=== PATIENT | female | born 1970 | race African-American/Black ===

== ENCOUNTER 2017-09-07 11:42 | Inpatient (IN) | payer OTHER ==
[2017-09-07 15:41] VITALS: BMI 21.2
--- NOTE | 2017-09-07 17:47 | HP ---
CIWA Score - CIWA Score Nausea/Vomitin (vomited x 1) Muscle Tremors: 2 Anxiety: 2 Agitation: 0-Normal Activity Paroxysmal Sweats: 2 Orientation: 2-Disoriented Date<2 days (reports today's date as 09/05/17) Tacttile Disturbances: 2-Mild Itch/Numbness/Burn (fingers and feets bilateral) Auditory Disturbances: 1-Very Mild Visual Disturbances: 1-Very Mild Sensitivity Headache: 1-Very Mild CIWA-Ar Total Score: [address] [facility] Chief Complaint: alcohol withdrawal symptoms Allergies/Adverse Reactions: Allergies Allergy/AdvReac Type Severity Reaction Status Date / Time No Known Allergies Allergy Verified 09/07/17 17:26 History of Present Illness: 47 yo female nicotine, alcohol, PCP, cocaine dependence is her seeking detox. PMHX: asthma, HIV+ reports compliance with medications, depression, bipolar and schizophrenia. Denies suicidal / homicidal ideation, denies auditory / visual hallucinations, reports in the past has auditory hallucinations. Last detox [facility] 2015. Reports hx of seizure related to substance use, last seizure three days ago. Denies hx of OD. Reports June her daughter from cancer. - Ebola screening Have you traveled outside of the country in the last 21 days: No Have you had contact with anyone from an Ebola affected area: No Have you been sick,other than usual withdrawal symptoms: No Do you have a fever: No - Review of Systems Constitutional: Chills, Loss of Appetite, Changes in sleep, Weakness, Unintentional Wgt. Loss (reports weight loss of about 20 lbs over the past couple of months.) EENT: reports: No Symptoms Reported Respiratory: reports: Cough (x 2 weeks) Cardiac: reports: No Symptoms Reported GI: reports: Diarrhea, Nausea, Poor Appetite, Poor Fluid Intake, Vomiting : reports: No Symptoms Reported Musculoskeletal: reports: Joint Pain Integumentary: reports: No Symptoms Reported Neuro: reports: Headache, Numbness (hands and feet), Tingling Endocrine: reports: Excessive Sweating Hematology: reports: Anemia Psychiatric: reports: Orientated x3, Agitated, Depressed Other Systems: Reviewed and Negative Patient History - Patient Medical History Hx Anemia: Yes Hx Asthma: Yes Hx Chronic Obstructive Pulmonary Disease (COPD): No Hx Cancer: No Hx Cardiac Disorders: No Hx Congestive Heart Failure: No Hx Hypertension: No Hx Hypercholesterolemia: No Hx Pacemaker: No HX Cerebrovascular Accident: Yes (1995) Hx Seizures: Yes (last seizure three days ago ) Hx Dementia: No Hx Diabetes: No Hx Gastrointestinal Disorders: No Hx Liver Disease: No Hx Genitourinary Disorders: No Hx Sexually Transmitted Disorders: No Hx Renal Disease (ESRD): No Hx Thyroid Disease: No Hx Human Immunodeficiency Virus (HIV): Yes Hx Hepatitis C: No Hx Depression: Yes Hx Suicide Attempt: No Hx Bipolar Disorder: Yes Hx Schizophrenia: Yes - Patient Surgical History Past Surgical History: No Hx Neurologic Surgery: No Hx Cataract Extraction: No Hx Cardiac Surgery: No Hx Lung Surgery: No Hx Breast Surgery: No Hx Breast Biopsy: No Hx Abdominal Surgery: No Hx Appendectomy: No Hx Cholecystectomy: No Hx Genitourinary Surgery: No Hx Section: Yes (2006) Hx Orthopedic Surgery: No Hx Hysterectomy: No Anesthesia Reaction: No - PPD History Previous Implant?: Yes Documented Results: Negative w/proof Date: 11/03/14 Results: 0 mm PPD to be Administered?: Yes - Reproductive History Patient is a Female of Child Bearing Age (11 -55 yrs old): Yes Last Menstrual Period: 09/19/15 - Smoking Cessation Smoking history: Current every day smoker Have you smoked in the past 12 months: Yes Aproximately how many cigarettes per day: 20 Hx Chewing Tobacco Use: No Initiated information on smoking cessation: Yes 'Breaking Loose' booklet given: 09/07/17 - Substance & Tx. History Hx Alcohol Use: Yes Hx Substance Use: Yes Substance Use Type: Alcohol, Cocaine Hx Substance Use Treatment: Yes ([facility] 2015) - Substances Abused Alcohol Route: Oral Frequency: Daily Amount used: 5 PINT Age of first use: 9 Date of Last Use: 09/07/17 Cocaine Route: Smoking Frequency: Daily Amount used: $300/2 WEEK Age of first use: 15 Date of Last Use: 09/07/17 PCP Route: Smoking Frequency: Daily Amount used: $10 Age of first use: 15 Date of Last Use: 09/07/17 Family Disease History - Family Disease History Family Disease History: Heart Disease: Grandparent (pt is nodding off , hx unrelaible ), CA: Grandparent, Other: Grandparent Admission Physical Exam BHS - Vital Signs Vital Signs: Vital Signs - 24 hr 09/07/17 15:39 Temperature 98.4 F Pulse Rate 93 H Respiratory 18 Rate Blood Pressure 138/91 - Physical General Appearance: Yes: Disheveled, Thin, Irritable, Anxious HEENTM: Yes: EOMI, Hearing grossly Normal, Normal ENT Inspection, Normocephalic , Normal Voice, NAOMI, Tm's normal, Other (chelithis) Respiratory: Yes: Chest Non-Tender, Lungs Clear, Normal Breath Sounds, No Respiratory Distress, No Accessory Muscle Use Neck: Yes: No masses,lesions,Nodules, Trachea in good position Breast: Yes: Breast Exam Deferred Cardiology: Yes: Regular Rhythm, Regular Rate Abdominal: Yes: Normal Bowel Sounds, Non Tender, Soft, Protuberent Genitourinary: Yes: Within Normal Limits Back: Yes: Normal Inspection Musculoskeletal: Yes: full range of Motion, Gait Steady, Pelvis Stable Neurological: Yes: script artist II-XII NML intact, Motor Strength 5/5, Depressed Affect, Other (anxious) Integumentary: Yes: Normal Color, Dry, Warm Lymphatic: Yes: Within Normal Limits - Diagnostic (1) Weight loss Current Visit: Yes Status: Acute (2) Dehydration Current Visit: Yes Status: Acute (3) Dry skin Current Visit: Yes Status: Acute (4) Alcohol dependence with uncomplicated withdrawal Current Visit: Yes Status: Acute (5) Asthma Current Visit: Yes Status: Chronic Qualifiers: Asthma severity: mild intermittent Asthma complication type: with status asthmaticus Qualified Code(s): J45.22 - Mild intermittent asthma with status asthmaticus (6) Bipolar 1 disorder, depressed Current Visit: No Status: Chronic (7) Cocaine dependence Current Visit: Yes Status: Chronic Qualifiers: Substance use status: uncomplicated Qualified Code(s): F14.20 - Cocaine dependence, uncomplicated (8) HIV disease Current Visit: Yes Status: Chronic Comment: Reports compliance with medications. (9) PCP dependence Current Visit: Yes Status: Acute (10) Tinea pedis Current Visit: Yes Status: Acute Qualifiers: Laterality: bilateral Qualified Code(s): B35.3 - Tinea pedis Cleared for Admission [facility] - Detox or Rehab [facility] Level of Care: Medically Managed Detox Regimen/Protocol: Valium S Breath Alcohol Content Breath Alcohol Content: 0.009 Urine Drug Screen - Results Drug Screen Negative: No Urine Drug Screen Results: AMRIK-Cocaine
[2017-09-07] MEDS ORDERED: MAG HYDROX/AL HYDROX/SIMETH 30 ML UNIT-DOSE CUP PO PRN (17:51)
[2017-09-07] MEDS ORDERED: P-EPHED 60MG/TRIPROLIDI 2.5MG TABLET PO PRN (17:51)
[2017-09-07] MEDS ORDERED: MENTHOL/PHENOL 1 EACH UD MM PRN (17:51)
[2017-09-07] MEDS ORDERED: diazePAM 5 MG TABLET PO PRN (17:51)
[2017-09-07] MEDS ORDERED: guaiFENesin/D-METHORPHAN HB 10 ML UNIT-DOSE CUPS PO PRN (17:51)
[2017-09-07] MEDS ORDERED: MAGNESIUM HYDROX 2400MG/30ML ORAL SUSPENSION 30 ML CUP PO PRN (17:51)
[2017-09-07] MEDS ORDERED: LOPERAMIDE HCL 2 MG CAPSULE PO PRN (17:51)
[2017-09-07] MEDS ORDERED: hydrOXYzine PAMOATE 50 MG CAPSULE (FP) PO PRN (17:51)
[2017-09-07] MEDS ORDERED: IBUPROFEN 400 MG TABLET (FP) PO PRN (17:51)
[2017-09-07] MEDS ORDERED: NICOTINE POLACRILEX 2 MG GUM BC PRN (17:51)
[2017-09-07] MEDS ORDERED: ACETAMINOPHEN 325 MG TABLET (FP) PO PRN (17:51)
[2017-09-07] MEDS ORDERED: MAGNESIUM CITRATE 300 ML BOTTLE PO PRN (17:51)
[2017-09-07] MEDS ORDERED: ALBUTEROL SO4 18 GM HFA INHALER IH PRN (17:53)
[2017-09-07] MEDS ORDERED: COLLOIDAL OATMEAL 1 BAR EACH TP PRN (18:13)
[2017-09-07] MEDS ORDERED: METHADONE HCL 10 MG TABLET (FOR DETOX USE ONLY) ONE (18:32)
[2017-09-07] MEDS ORDERED: ALBUTEROL SO4 2.5/IPRATROPIUM 0.5 INH SOL 3 ML VIAL.NEB. NEB PRN (18:56)
[2017-09-07] MEDS ORDERED: diazePAM 5 MG TABLET PO ONE (19:00)
[2017-09-07] MEDS ORDERED: diphenhydrAMINE HCL 25 MG CAPSULE (FP) PO ONE (21:28)
[2017-09-07] MEDS ORDERED: MELATONIN 5 MG TABLETS PO PRN (22:00)
[2017-09-07 22:14] LABS: URINE APPEARANCE SLCLOUDY; URINE BILIRUBIN NEGATIVE (<2.0 mg/dL); URINE BLOOD NEGATIVE (NEGATIVE); URINE COLOR YELLOW; URINE GLUCOSE (UA) NEGATIVE (NEGATIVE); URINE KETONE NEGATIVE (NEGATIVE); URINE LEUK ESTERASE NEGATIVE (NEGATIVE); URINE NITRITE NEGATIVE (NEGATIVE); URINE PROTEIN NEGATIVE (NEGATIVE)
[2017-09-07] MEDS: CLOTRIMAZOLE 1% CREAM 15 GM TUBE TP SCH (23:49)
[2017-09-07] MEDS: diphenhydrAMINE HCL 50 MG CAPSULE PO SCH (23:49)
[2017-09-07] MEDS: THIAMINE HCL 100 MG TABLET (FP) PO SCH (23:50)
[2017-09-07] MEDS: diazePAM 5 MG TABLET PO SCH (23:50)
[2017-09-08] MEDS: diazePAM 5 MG TABLET PO SCH ×3 (06:27→22:40)
--- NOTE | 2017-09-08 07:40 | CONSULT ---
[facility] Psychiatric Consult - Data Date of interview: 09/08/17 Admission source: [facility] Identifying data: This is 47 years old female, single, homeless, on PA, unemployed, with history of Bipolar Disorder, hiustory of nicotine, alcohol, PCP, cocaine dependence is here seeking detox. Patient reports psychiatric hospitalization history Substance Abuse History: - Smoking Cessation. Smoking history: Current every day smoker. Have you smoked in the past 12 months: Yes. Aproximately how many cigarettes per day: 20. Hx Chewing Tobacco Use: No. Initiated information on smoking cessation: Yes. 'Breaking Loose' booklet given: 09/07/17. - Substance & Tx. History. Hx Alcohol Use: Yes. Hx Substance Use: Yes. Substance Use Type : Alcohol, Cocaine. Hx Substance Use Treatment: Yes ([facility] 2016). - Substances Abused. Alcohol. Route: Oral. Frequency: Daily. Amount used: 5 PINT. Age of first use: 9. Date of Last Use: 09/07/17. Cocaine. Route: Smoking. Frequency: Daily. Amount used: $300/2 WEEK. Age of first use: 15. Date of Last Use: 09/07/17. PCP. Route: Smoking. Frequency: Daily. Amount used: $ 10. Age of first use: 15. Date of Last Use: 09/07/17 Medical History: Patioent reports history of GERD, hiv+, history of seizure related to substance use, last seizure three days ago. Psychiatric History: Patient reports Bipolar Disorder history, reports recent psychiatic admission on 2018 for safety at [facility], reports in a Family (Daughter, from Cancer recently), reports taking prior to admission : Seroquel 100mg po qhs. Benadryl 50mg po bid. Denies suicidal history, minimiozing past psychiatric history Physical/Sexual Abuse/Trauma History: Unknown, unclear Additional Comment: Seroquel 100mg po qhs. Benadryl 50mg po bid Mental Status Exam - Mental Status Exam Alert and Oriented to: Person Cognitive Function: Fair Patient Appearance: Unkempt Mood: Sad Affect: Flat Patient Behavior: Sedated Speech Pattern: Delayed Voice Loudness: Moderately Soft/Quiet Thought Process: Circumstantial Thought Disorder: Being Controlled Hallucinations: Denies Suicidal Ideation: Denies Homicidal Ideation: Denies Insight/Judgement: Fair Sleep: Difficulty falling asleep Appetite: Weight loss Muscle strength/Tone: Mild Hypotonicity Gait/Station: Shuffling Additional Comments: Seroquel 100mg po qhs. Benadryl 50mg po bid Psychiatric Findings - Problem List ([place] 1, 2,3) (1) Alcohol dependence with uncomplicated withdrawal Current Visit: Yes Status: Acute (2) PCP dependence Current Visit: Yes Status: Acute (3) Weight loss Current Visit: Yes Status: Acute (4) Cocaine dependence Current Visit: Yes Status: Chronic Qualifiers: Substance use status: uncomplicated Qualified Code(s): F14.20 - Cocaine dependence, uncomplicated (5) Bipolar 1 disorder, depressed Current Visit: No Status: Chronic (6) Opiate dependence Current Visit: No Status: Chronic Qualifiers: Substance use status: uncomplicated Qualified Code(s): F11.20 - Opioid dependence, uncomplicated (7) Drug-induced mood disorder Current Visit: Yes Status: Acute - Initial Treatment Plan Initial Treatment Plan: Seroquel 100mg po qhs. Benadryl 50mg po bid
[2017-09-08] MEDS ORDERED: cloNIDine HCL 0.1 MG TABLET PO PRN (07:47)
[2017-09-08 10:16] LABS: HEMATOCRIT 32.5 % (32.4-45.2); HEMOGLOBIN 10.5 GM/dL (10.7-15.3); MCH 27.1 pg (25.7-33.7); MCHC 32.1 g/dl (32.0-36.0); MEAN CELL VOLUME 84.2 fl (80-96); MEAN PLT VOLUME 9.5 fl (7.5-11.1); PLATELET COUNT 251 K/MM3 (134-434); RBC 3.86 M/mm3 (3.60-5.2); RDW 21.5 % (11.6-15.6); WHITE BLOOD COUNT 5.2 K/mm3 (4.0-10.0)
[2017-09-08] MEDS ORDERED: cloNIDine HCL 0.1 MG TABLET PO ONE (10:29)
--- NOTE | 2017-09-08 10:29 | PN ---
[facility] CIWA - CIWA Score Nausea/Vomitin Muscle Tremors: 2 Anxiety: 2 Agitation: 2 Paroxysmal Sweats: 3 Orientation: 0-Oriented Tacttile Disturbances: 1-Very Mild Itch/Numbness Auditory Disturbances: 0-None Visual Disturbances: 0-None Headache: 1-Very Mild CIWA-Ar Total Score: 13 BHS Progress Note (SOAP) Subjective: nausea, sweats, interrupted wsleep, anxeity, tremors Objective: 09/08/17 10:28 Vital Signs - 24 hr 09/07/17 09/08/17 09/08/17 15:39 00:30 03:30 Temperature 98.4 F Pulse Rate 93 H Respiratory 18 18 18 Rate Blood Pressure 138/91 09/08/17 06:00 Temperature 97.9 F Pulse Rate 86 Respiratory 20 Rate Blood Pressure 148/99 hypertensive, tachycardic 09/08/17 10:28 Laboratory Tests 09/07/17 21:00 Urine Color Yellow Urine Appearance Slcloudy Urine pH 6.0 Ur Specific Miller 1.024 Urine Protein Negative Urine Glucose (UA) Negative Urine Ketones Negative Urine Blood Negative Urine Nitrite Negative Urine Bilirubin Negative Urine Urobilinogen 2.0 H Ur Leukocyte Esterase Negative labs p[ending Assessment: 09/08/17 10:28 withdrawal sx cont detox, control bp and hr
[2017-09-08 10:51] LABS: ALBUMIN 3.4 g/dl (3.4-5.0); ANION GAP 7 (8-16); BLOOD UREA NITROGEN 13 mg/dL (7-18); CALCIUM 8.3 mg/dL (8.5-10.1); CHLORIDE 109 mmol/L (98-107); CO2 25 mmol/L (21-32); GLUCOSE,RANDOM 67 mg/dL (74-106); POTASSIUM 3.6 mmol/L (3.5-5.1); SODIUM 141 mmol/L (136-145)
[2017-09-08 10:56] LABS: ALK PHOS 82 U/L (45-117); BILIRUBIN,TOTAL 0.2 mg/dL (0.2-1.0); CREATININE 0.7 mg/dL (0.55-1.02); SGOT/AST 28 U/L (15-37); SGPT/ALT 22 U/L (12-78)
[2017-09-08] MEDS: CLOTRIMAZOLE 1% CREAM 15 GM TUBE TP SCH ×2 (11:30→22:42)
[2017-09-08] MEDS: PRENATAL VITAMINS W/ FOLIC ACID TABLET (FP) PO SCH (11:30)
[2017-09-08] MEDS: ABACAVIR/DOLUTEGRAVIR/LAMIVUDI (TRIUMEQ) TABLET -NF PO SCH (11:30)
[2017-09-08] MEDS: NICOTINE 21 MG/24 HOURS TOPICAL PATCH TD SCH (11:47)
[2017-09-08] MEDS: diphenhydrAMINE HCL 50 MG CAPSULE PO SCH ×2 (11:47→22:43)
[2017-09-08] MEDS: THIAMINE HCL 100 MG TABLET (FP) PO SCH (22:39)
[2017-09-08] MEDS ORDERED: diphenhydrAMINE HCL 25 MG CAPSULE (FP) PO ONE (22:40)
[2017-09-08] MEDS: QUEtiapine FUMARATE 100 MG TABLET (FP) PO SCH (22:41)
[2017-09-09] MEDS ORDERED: diphenhydrAMINE HCL 25 MG CAPSULE (FP) PO ONE (09:43)
[2017-09-09] MEDS: diazePAM 5 MG TABLET PO SCH ×2 (10:07→22:28)
[2017-09-09] MEDS: ABACAVIR/DOLUTEGRAVIR/LAMIVUDI (TRIUMEQ) TABLET -NF PO SCH (10:07)
[2017-09-09] MEDS: PRENATAL VITAMINS W/ FOLIC ACID TABLET (FP) PO SCH (10:07)
[2017-09-09] MEDS: NICOTINE 21 MG/24 HOURS TOPICAL PATCH TD SCH (10:08)
[2017-09-09] MEDS: diphenhydrAMINE HCL 50 MG CAPSULE PO SCH ×2 (10:08→23:13)
[2017-09-09] MEDS: CLOTRIMAZOLE 1% CREAM 15 GM TUBE TP SCH ×2 (10:08→23:13)
--- NOTE | 2017-09-09 10:27 | PN ---
S CIWA - CIWA Score Nausea/Vomitin Muscle Tremors: 2 Anxiety: 2 Agitation: 2 Paroxysmal Sweats: 2 Orientation: 0-Oriented Tacttile Disturbances: 1-Very Mild Itch/Numbness Auditory Disturbances: 0-None Visual Disturbances: 0-None Headache: 0-None Present CIWA-Ar Total Score: 12 S Progress Note (SOAP) Subjective: interrupted sleep, sweats, diarrhea Objective: 09/09/17 10:25 Vital Signs Temperature 96.6 F L 09/09/17 06:00 Pulse Rate 99 H 09/09/17 06:00 Respiratory Rate 18 09/09/17 06:00 Blood Pressure 122/83 09/09/17 06:00 O2 Sat by Pulse Oximetry (%) Laboratory Tests 09/07/17 09/08/17 09/08/17 21:00 06:00 06:00 WBC 5.2 D RBC 3.86 Hgb 10.5 L D Hct 32.5 MCV 84.2 MCH 27.1 D MCHC 32.1 RDW 21.5 H Plt Count 251 MPV 9.5 Sodium 141 Potassium 3.6 Chloride 109 H Carbon Dioxide 25 Anion Gap 7 L BUN 13 Creatinine 0.7 Creat Clearance w eGFR > 60 Random Glucose 67 L Calcium 8.3 L Total Bilirubin 0.2 D AST 28 ALT 22 Alkaline Phosphatase 82 Total Protein 8.0 Albumin 3.4 Urine Color Yellow Urine Appearance Slcloudy Urine pH 6.0 Ur Specific Welch 1.024 Urine Protein Negative Urine Glucose (UA) Negative Urine Ketones Negative Urine Blood Negative Urine Nitrite Negative Urine Bilirubin Negative Urine Urobilinogen 2.0 H Ur Leukocyte Esterase Negative RPR Titer 09/08/17 06:00 WBC RBC Hgb Hct MCV MCH MCHC RDW Plt Count MPV Sodium Potassium Chloride Carbon Dioxide Anion Gap BUN Creatinine Creat Clearance w eGFR Random Glucose Calcium Total Bilirubin AST ALT Alkaline Phosphatase Total Protein Albumin Urine Color Urine Appearance Urine pH Ur Specific Welch Urine Protein Urine Glucose (UA) Urine Ketones Urine Blood Urine Nitrite Urine Bilirubin Urine Urobilinogen Ur Leukocyte Esterase RPR Titer Nonreactive pt aox3 in nad lying in bed Assessment: 09/09/17 10:26 withdrawal sx's mild anemia Plan: cont. detox increase fluids imodium prn
[2017-09-09] MEDS: QUEtiapine FUMARATE 100 MG TABLET (FP) PO SCH (22:27)
[2017-09-09] MEDS: THIAMINE HCL 100 MG TABLET (FP) PO SCH (22:27)
[2017-09-10] MEDS ORDERED: diphenhydrAMINE HCL 25 MG CAPSULE (FP) PO ONE ×2 (09:30→21:22)
[2017-09-10] MEDS: ABACAVIR/DOLUTEGRAVIR/LAMIVUDI (TRIUMEQ) TABLET -NF PO SCH (10:17)
[2017-09-10] MEDS: PRENATAL VITAMINS W/ FOLIC ACID TABLET (FP) PO SCH (10:26)
[2017-09-10] MEDS: diazePAM 5 MG TABLET PO SCH ×2 (10:26→23:23)
[2017-09-10] MEDS: CLOTRIMAZOLE 1% CREAM 15 GM TUBE TP SCH ×2 (10:27→23:23)
[2017-09-10] MEDS: diphenhydrAMINE HCL 50 MG CAPSULE PO SCH ×2 (10:27→23:23)
[2017-09-10] MEDS: NICOTINE 21 MG/24 HOURS TOPICAL PATCH TD SCH (10:28)
--- NOTE | 2017-09-10 15:17 | PN ---
S Progress Note (SOAP) Subjective: ALERT,IRRITABLE,ANXIOUS,INTERRUPTED SLEEP Objective: 09/10/17 15:16 Vital Signs Temperature 98.1 F 09/10/17 11:23 Pulse Rate 112 H 09/10/17 11:23 Respiratory Rate 18 09/10/17 11:23 Blood Pressure 131/75 09/10/17 11:23 O2 Sat by Pulse Oximetry (%) Assessment: 09/10/17 15:16 WITHDRAWAL SYMPTOM Plan: CONTINUE DETOX,DISCHARGE IN AM
--- NOTE | 2017-09-10 18:38 | EKG ---
Test Reason : Blood Pressure : / mmHG Vent. Rate : 093 BPM Atrial Rate : 093 BPM P-R Int : 146 ms QRS Dur : 090 ms QT Int : 394 ms P-R-T Axes : 062 063 067 degrees QTc Int : 489 ms NORMAL SINUS RHYTHM MODERATE VOLTAGE CRITERIA FOR LVH, MAY BE NORMAL VARIANT PROLONGED QT ABNORMAL ECG NO PREVIOUS ECGS AVAILABLE Confirmed by MD TAI, MILTON ([id number]) on 09/10/2017 6:37:26 PM Referred By: Confirmed By:MILTON LUJAN MD
[2017-09-10 22:24] VITALS: BP 139/78; PULSE 98; TEMP 97.5
[2017-09-10] MEDS: QUEtiapine FUMARATE 100 MG TABLET (FP) PO SCH (23:23)
[2017-09-10] MEDS: THIAMINE HCL 100 MG TABLET (FP) PO SCH (23:23)
--- NOTE | 2017-09-11 09:00 | DS ---
[facility] Detox Discharge Summary Admission Date: 09/07/17 Discharge Date: 09/11/17 - History Present History: Alcohol Dependence - Physical Exam Results Vital Signs: Vital Signs Temperature 97.5 F L 09/10/17 22:24 Pulse Rate 98 H 09/10/17 22:24 Respiratory Rate 18 09/11/17 03:30 Blood Pressure 139/78 09/10/17 22:24 O2 Sat by Pulse Oximetry (%) Pertinent Admission Physical Exam Findings: 47 years old female admitted for alcohol detox patient completed detox regimen tolerated well denies alcohol withdrawal sx denies pain no shortness of breath alert oriented x 3 no acute distress cardiac s1s2 pulmonary clear bilaterally abdomen soft none tenderness patient accepted aftercare [facility] rehabilitation - Treatment Hospital Course: Detox Protocol Followed, Detoxed Safely, Responded well, Discharged Condition Good, Rehab Referral Accepted Patient has Accepted a Rehab Referral to: [facility] - Medication Discharge Medications: Ambulatory Orders Abacavir/Dolutegravir/Lamivudi [Triumeq Tablet] 1 each PO DAILY 09/24/15 Quetiapine Fumarate [Seroquel -] 100 mg PO HS 09/24/15 Diphenhydramine [Benadryl Capsule -] 50 mg PO BID #60 capsule 09/08/17 Quetiapine Fumarate [Seroquel -] 100 mg PO HS #30 tablet 09/08/17 Albuterol Sulfate Inhaler - [Ventolin HFA Inhaler -] 2 inh PO Q4H PRN #1 inhaler 09/11/17 - Diagnosis (1) Alcohol dependence with uncomplicated withdrawal Current Visit: Yes Status: Acute (2) Asthma Current Visit: Yes Status: Chronic Qualifiers: Asthma severity: mild Asthma persistence: intermittent Asthma complication type: with status asthmaticus Qualified Code(s): J45.22 - Mild intermittent asthma with status asthmaticus - AMA Did Patient Leave Against Medical Advice: No
[2017-09-11] MEDS ORDERED: diazePAM 5 MG TABLET PO SCH (10:00)
== END 2017-09-11 09:31 | disposition home or self-care (01) | DRG 773 ==
LOC: YASAS 11:42 → Y6N 18:06
PROVIDERS: ADMIT Internal Medicine; ATTEND Internal Medicine
PROC: HZ2ZZZZ Detoxification Services for Substance Abuse Treatment (ICD-10-PCS; principal; 2017-09-07)
DX: F11.20 Opioid dependence, uncomplicated (principal); F10.230 Alcohol dependence with withdrawal, uncomplicated; F14.20 Cocaine dependence, uncomplicated; F16.20 Hallucinogen dependence, uncomplicated; F19.24 Other psychoactive substance dependence with psychoactive substance-induced mood disorder; F31.89 Other bipolar disorder; F20.9 Schizophrenia, unspecified; J45.22 Mild intermittent asthma with status asthmaticus; B35.3 Tinea pedis; L85.3 Xerosis cutis; R63.4 Abnormal weight loss; Z68.21 Body mass index [BMI] 21.0-21.9, adult; Z86.73 Personal history of transient ischemic attack (TIA), and cerebral infarction without residual deficits
CPT/HCPCS: 36415; 71046-TC-FY; 80053; 81003; 85027; 86593; 93005; 93010; J0735

== ENCOUNTER 2018-07-25 09:19 | Inpatient (IN) | payer OTHER ==
[2018-07-25 11:04] VITALS: BMI 23.3
--- NOTE | 2018-07-25 12:06 | HP ---
CIWA Score Nausea/Vomitin-No Nausea/No Vomiting Muscle Tremors: None Anxiety: 4-Mod. Anxious/Guarded Agitation: 4-Moderately Restless Orientation: 0-Oriented Tacttile Disturbances: 0-None Auditory Disturbances: 0-None Visual Disturbances: 0-None Headache: 0-None Present - Admission Criteria OASAS Guidelines: Admission for Medically Managed Detox: Requires at least one of the followin. CIWA greater than 12 2. Seizures within the past 24 hours 3. Delirium tremens within the past 24 hours 4. Hallucinations within the past 24 hours 5. Acute intervention needed for co occurring medical disorder 6. Acute intervention needed for co occurring psychiatric disorder 7. Severe withdrawal that cannot be handled at a lower level of care (continued vomiting, continued diarrhea, abnormal vital signs) requiring intravenous medication and/or fluids 8. Admission ROS [facility] Allergies/Adverse Reactions: Allergies Allergy/AdvReac Type Severity Reaction Status Date / Time No Known Allergies Allergy Verified 07/25/18 10:35 History of Present Illness: patient here requesting rehab from cocaine use , reports 200-300 $/day since age 15 , denies IVDU, this is the patient's first rehab episode , denies outpt program . Reports had " slight stroke " 2 weeks ago, went to [facility] ,states had head CT , denies appointment for followup.states was given pain meds no d/ c paperwork available , reports right hand weakness since then . tobacco : 1 ppd since age 13 denies other illicits or etoh xanax : every other day since last summer , no rx , reports anxiety and tremors if not taking meds denies seizures , latest use yesterday . PMHX : HIV ( dx 1992 , rf = [facility] ) no regular medical care has appt 08/14/[address] admits non- compliance to meds and no recent rx . , asthma ( dx childhood hospitalized , [place] , no inhaler brought in , latest used 3 d ago ) PSHx : C-sx x 1 , LMP 1 mo ago upt neg Psych ; bipolar d/o , denies SI / HI on meds Seroquel , latest taken yesterday , psych at [facility] : homeless , unemployed Exam Limitations: Clinical Condition - Ebola screening Have you traveled outside of the country in the last 21 days: No Have you had contact with anyone from an Ebola affected area: No Have you been sick,other than usual withdrawal symptoms: No Do you have a fever: No - Review of Systems Constitutional: See HPI EENT: reports: Other (denies vision problems , denies dysphagia) Respiratory: reports: See HPI Cardiac: reports: No Symptoms Reported GI: reports: No Symptoms Reported : reports: No Symptoms Reported Musculoskeletal: reports: Muscle Weakness (right hand and wrist), Other Integumentary: reports: Rash (perioral) Neuro: reports: Pre-Existing Deficit, Weakness Endocrine: reports: No Symptoms Reported Psychiatric: reports: Orientated x3, Agitated, Anxious Patient History - Patient Medical History Hx Anemia: Yes Hx Asthma: Yes Hx Chronic Obstructive Pulmonary Disease (COPD): No Hx Cancer: No Hx Cardiac Disorders: No Hx Congestive Heart Failure: No Hx Hypertension: No Hx Hypercholesterolemia: No Hx Pacemaker: No HX Cerebrovascular Accident: Yes (1995) Hx Seizures: No Hx Dementia: No Hx Diabetes: No Hx Gastrointestinal Disorders: No Hx Liver Disease: No Hx Genitourinary Disorders: No Hx Sexually Transmitted Disorders: Yes Hx Renal Disease (ESRD): No Hx Thyroid Disease: No Hx Human Immunodeficiency Virus (HIV): Yes Hx Hepatitis C: No Hx Depression: Yes Hx Suicide Attempt: No Hx Bipolar Disorder: Yes Hx Schizophrenia: Yes - Patient Surgical History Past Surgical History: No Hx Neurologic Surgery: No Hx Cataract Extraction: No Hx Cardiac Surgery: No Hx Lung Surgery: No Hx Breast Surgery: No Hx Breast Biopsy: No Hx Abdominal Surgery: No Hx Appendectomy: No Hx Cholecystectomy: No Hx Genitourinary Surgery: No Hx Section: Yes (2006) Hx Orthopedic Surgery: No Hx Hysterectomy: No Anesthesia Reaction: No - PPD History Previous Implant?: Yes Documented Results: Negative w/o proof Implanted On Prior [facility] Admission?: Yes Date: 11/03/14 Results: 0 mm - Reproductive History Last Menstrual Period: 06/21/18 Patient : No - Smoking Cessation Smoking history: Current every day smoker Have you smoked in the past 12 months: Yes Aproximately how many cigarettes per day: 20 Hx Chewing Tobacco Use: No Initiated information on smoking cessation: No - Substances Abused Crack Route: Smoking Frequency: Daily Amount used: $200-300 Age of first use: 15 Date of Last Use: 07/22/18 Family Disease History - Family Disease History Family Disease History: Heart Disease: Grandparent, [place]: Grandparent, Other: Grandparent, Father (prostate [place] d. 82 ), Mother (d unknown cause ), Sister ( 19 sisters unknown health status ), Son (x 4 , A & W ), Daughter (x 1 , A & W ) Admission Physical Exam [facility] - Vital Signs Vital Signs: Vital Signs - 24 hr 07/25/18 10:31 Temperature 96.8 F L Pulse Rate 101 H Respiratory 18 Rate Blood Pressure 122/77 - Physical General Appearance: Yes: Disheveled, Mild Distress, Anxious HEENTM: Yes: EOMI, Hearing grossly Normal, Normocephalic, Normal Voice, Other ( many missing teeth) Respiratory: Yes: Chest Non-Tender, Lungs Clear, Decreased Breath Sounds Neck: Yes: No masses,lesions,Nodules, Trachea in good position Breast: Yes: Breast Exam Deferred Cardiology: Yes: Regular Rhythm, Regular Rate, S1, S2, Tachycardia Abdominal: Yes: Normal Bowel Sounds, Non Tender, Soft Genitourinary: Yes: Within Normal Limits Back: Yes: Normal Inspection Musculoskeletal: Yes: Muscle weakness (R), Other (right hand and right wrist monoplegia) Extremities: Yes: Tremors, Other (right hand unable to make fist , open hand right wrist drop) Neurological: Yes: Other (right wrist drop right hand paresis) Integumentary: Yes: Rash (dyan-oral small blisters inside roof of mouth) - Diagnostic (1) Sedative dependence Current Visit: Yes Status: Acute (2) Cocaine dependence Current Visit: Yes Status: Chronic Qualifiers: Substance use status: uncomplicated Qualified Code(s): F14.20 - Cocaine dependence, uncomplicated (3) Wrist drop, right wrist Current Visit: Yes Status: Acute (4) Monoplegia affecting dominant side Current Visit: Yes Status: Acute BHS Breath Alcohol Content Breath Alcohol Content: 0 Urine Pregancy Test - Result Urine Test Results: Negative- NO Line Present Urine Drug Screen - Results Drug Screen Negative: No Urine Drug Screen Results: AMRIK-Cocaine, BZO-Benzodiazepines Inpatient Rehab Admission - Rehab Decision to Admit Inpatient rehab admission?: Yes - Initial Determination Are CD services needed?: Yes Free of communicable disease: Yes Not in need of hospitalization: Yes - Rehab Admission Criteria Previous failed treatment: No Poor recovery environment: Yes Comorbidities: Yes Lacks judgement: Yes Patient is meeting Inpatient Rehab admission criteria:: Yes
[2018-07-25] MEDS ORDERED: NICOTINE POLACRILEX 2 MG GUM BUC PRN (12:17)
[2018-07-25] MEDS ORDERED: IBUPROFEN 400 MG TABLET (FP) PO PRN (12:17)
[2018-07-25] MEDS ORDERED: MENTHOL/PHENOL 1 EACH UD MM PRN (12:17)
[2018-07-25] MEDS ORDERED: MAG HYDROX/AL HYDROX/SIMETH 30 ML UNIT-DOSE CUP PO PRN (12:17)
[2018-07-25] MEDS ORDERED: MAGNESIUM CITRATE 300 ML BOTTLE PO PRN (12:17)
[2018-07-25] MEDS ORDERED: diazePAM 5 MG TABLET PO PRN (12:17)
[2018-07-25] MEDS ORDERED: MAGNESIUM HYDROX 2400MG/30ML ORAL SUSPENSION 30 ML CUP PO PRN (12:17)
[2018-07-25] MEDS ORDERED: ACETAMINOPHEN 325 MG TABLET (FP) PO PRN (12:17)
[2018-07-25] MEDS ORDERED: ALBUTEROL SO4 0.083% IH SOL 2.5 MG/3 ML VIAL.NEB. NEB PRN (12:19)
[2018-07-25] MEDS: diazePAM 5 MG TABLET PO SCH ×2 (14:04→22:43)
--- NOTE | 2018-07-25 15:40 | CONSULT ---
[facility] Psychiatric Consult - Data Date of interview: 07/25/18 Admission source: [facility] Identifying data: Patient is a 48 year old single female, unemployed, and currently homeless. This is one of multiple admissions by patient. Patient admitted to for cocaine and benzodiazepine dependence. Substance Abuse History: Smoking Cessation. Smoking history: Current every day smoker. Have you smoked in the past 12 months: Yes. Aproximately how many cigarettes per day: 20. Hx Chewing Tobacco Use: No. Initiated information on smoking cessation: Yes. - Substances Abused. Crack. Route: Smoking. Frequency: Daily. Amount used: $200-300. Age of first use: 15. Date of Last Use: 07/22/18 Medical History: Anemia, asthma, CVA (1995), h/o sexually transmitted disease Psychiatric History: Patient presents as irritable and uncooperative with consultation. Patient reports h/o multiple psychiatric hospitalizations but is unable to recall the dates of the hospitalizations and the names of the hospitals. She reports taking seroquel 100mg and benadryl 50mg BID. Patient reports receiving refills from local emergency rooms. Pharmacy claims reviewed and no medications noted. Patient unable to recall her home pharmacy. At present , patient is irritable and reports difficulty sleeping. Physical/Sexual Abuse/Trauma History: denies. Mental Status Exam - Mental Status Exam Alert and Oriented to: Time, Place, Person Cognitive Function: Fair Patient Appearance: Well Groomed Mood: Withdrawn, Irritable Affect: Mood Congruent Patient Behavior: Uncooperative, Agitated Speech Pattern: Delayed Voice Loudness: Moderately Soft/Quiet Thought Process: Goal Oriented Thought Disorder: Not Present Hallucinations: Denies Suicidal Ideation: Denies Homicidal Ideation: Denies Insight/Judgement: Poor Sleep: Fair Appetite: Fair Muscle strength/Tone: Normal Gait/Station: Normal Psychiatric Findings - Problem List ([place] 1, 2,3) (1) Substance induced mood disorder Status: Acute (2) Sedative dependence Status: Acute (3) Cocaine dependence Status: Chronic Qualifiers: Substance use status: uncomplicated Qualified Code(s): F14.20 - Cocaine dependence, uncomplicated (4) Substance-induced sleep disorder Status: Acute - Initial Treatment Plan Initial Treatment Plan: Psychoeducation provided. Detoxification in progress. Will order Seroquel 50mg qhs and benadryl 25mg q6h for agitation. Vistaril not ordered for agitation as patient states she takes benadryl for irritability. Benefits and side effects discussed. Verbal consent given.
[2018-07-25] MEDS ORDERED: diphenhydrAMINE HCL 25 MG CAPSULE (FP) PO PRN (16:07)
[2018-07-25] MEDS ORDERED: QUEtiapine FUMARATE 25 MG TABLET (FP) PO SCH (22:00)
[2018-07-25] MEDS ORDERED: THIAMINE HCL 100 MG TABLET (FP) PO SCH (22:00)
[2018-07-25] MEDS ORDERED: MELATONIN 5 MG TABLETS PO PRN (22:00)
[2018-07-25] MEDS ORDERED: QUEtiapine FUMARATE 50 MG TABLET PO SCH (22:00)
[2018-07-25] MEDS: valACYclovir HCL 500 MG TABLET (FP) PO SCH (22:43)
[2018-07-26] MEDS: diazePAM 5 MG TABLET PO SCH (06:05)
[2018-07-26 09:38] VITALS: BP 108/67; PULSE 108; TEMP 99.7
[2018-07-26] MEDS ORDERED: PRENATAL VITAMINS W/ FOLIC ACID TABLET (FP) PO SCH (10:00)
[2018-07-26] MEDS ORDERED: diazePAM 5 MG TABLET PO SCH (10:00)
[2018-07-26] MEDS ORDERED: BACITRACIN 0.9 GM PACKET TP SCH (10:00)
[2018-07-26 10:37] LABS: HEMATOCRIT 34.7 % (32.4-45.2); HEMOGLOBIN 11.4 GM/dL (10.7-15.3); MCH 29.7 pg (25.7-33.7); MEAN CELL VOLUME 90.1 fl (80-96); MEAN PLT VOLUME 9.8 fl (7.5-11.1); PLATELET COUNT 212 K/MM3 (134-434); RBC 3.85 M/mm3 (3.60-5.2); RDW 13.8 % (11.6-15.6); WHITE BLOOD COUNT 10.5 K/mm3 (4.0-10.0)
[2018-07-26 10:45] LABS: ALBUMIN 2.8 g/dl (3.4-5.0); ALK PHOS 82 U/L (45-117); ANION GAP 8 MMOL/L (8-16); BILIRUBIN,TOTAL 0.3 mg/dL (0.2-1); BLOOD UREA NITROGEN 7 mg/dL (7-18); CALCIUM 8.3 mg/dL (8.5-10.1); CHLORIDE 103 mmol/L (98-107); CO2 28 mmol/L (21-32); CREATININE 0.5 mg/dL (0.55-1.3); GLUCOSE,RANDOM 77 mg/dL (74-106); POTASSIUM 3.4 mmol/L (3.5-5.1); SGOT/AST 16 U/L (15-37); SGPT/ALT 13 U/L (13-61); SODIUM 139 mmol/L (136-145); TOT PROT 7.5 g/dl (6.4-8.2)
[2018-07-26] MEDS: valACYclovir HCL 500 MG TABLET (FP) PO SCH (11:17)
--- NOTE | 2018-07-26 11:36 | PN ---
[facility] Progress Note Note: PATIENT UNWILLING TO SPEAK WITH CAMPAIGN WORKER WHEN DOING DAILY AM ROUNDS ASSESSMENT TODAY. PATIENT APPEARS VERY LETHARGIC AND MILDLY DYSPNEIC. PATIENT SPECIFICALLY REQUESTS TO "GO TO THE HOSPITAL BECAUSE SHE FEELS LIKE SHE HAS PNEUMONIA." ALSO RECEIVED NOTICE FROM ALEC DAVISON THAT PATIENT HAS BEEN REFUSING DETOX PROTOCOL MEDICATION (VALIUM) THUS FAR DURING HER DETOX ADMISSION. ONLY ABLE TO AUSCULTATE LUNG SOUND ON CHEST (PATIENT REPORTS THAT SHE FEELS TOO WEAK TO TURN TO ALLOW HER BACK TO BE AUSCULTATED). CHEST LUNGS SOUNDS CLEAR. REPORT GIVEN TO CONSTANTIN Ortega AT [facility] (NO MEDICAL PROVIDER AVAILABLE TO RECEIVE REPORT AT THIS TIME). PATIENT TO BE TAKEN VIA AMBULANCE TO [facility] FOR FURTHER MEDICAL EVALUATION. Ryan LINN NP
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
[2018-07-27] MEDS ORDERED: diazePAM 5 MG TABLET PO SCH (10:00)
== END 2018-07-26 13:00 | disposition short-term general hospital (02) | DRG 774 ==
LOC: YASAS 09:19 → Y6N 12:43
PROVIDERS: ADMIT Surgery; ATTEND Surgery
PROC: HZ2ZZZZ Detoxification Services for Substance Abuse Treatment (ICD-10-PCS; principal; 2018-07-25)
DX: F13.230 Sedative, hypnotic or anxiolytic dependence with withdrawal, uncomplicated (principal); F14.20 Cocaine dependence, uncomplicated; F17.210 Nicotine dependence, cigarettes, uncomplicated; F19.24 Other psychoactive substance dependence with psychoactive substance-induced mood disorder; F19.282 Other psychoactive substance dependence with psychoactive substance-induced sleep disorder; G83.21 Monoplegia of upper limb affecting right dominant side; G83.31 Monoplegia, unspecified affecting right dominant side; J45.909 Unspecified asthma, uncomplicated; Z21 Asymptomatic human immunodeficiency virus [HIV] infection status; M21.331 Wrist drop, right wrist; R00.0 Tachycardia, unspecified; R53.83 Other fatigue; R06.00 Dyspnea, unspecified; Z86.73 Personal history of transient ischemic attack (TIA), and cerebral infarction without residual deficits; Z87.42 Personal history of other diseases of the female genital tract; Z59.0 Homelessness
CPT/HCPCS: 36415; 80053; 85027; 86593

== ENCOUNTER 2018-07-26 13:14 | Emergency (ER) | payer OTHER ==
[2018-07-26 13:59] VITALS: BP 116/71; TEMP 98.1; BMI 20.5
[2018-07-26 15:23] VITALS: PULSE 84
--- NOTE | 2018-07-26 15:23 | PDOC ---
History of Present Illness - General Chief Complaint: Shortness of Breath Stated Complaint: SOB Time Seen by Provider: 07/26/18 15:05 History Source: Patient Exam Limitations: Other (uncooperative) - History of Present Illness Initial Comments: 07/26/18 15:20 48 yr old woman with HIV(noncompliant), hx of cocaine use(smoking and snorting) BIBEMS from [facility] for URI symptoms for past 2 days. productive cough of thick white phlgem and rhinorrhea started 2 weeks ago a/w b/l rib pain. developed painful mouth sores for the last week. pt is noncooperative for rest of HPI and past medical history. repeats that she does not know any further information about her pmhx/surghx/ sochx. Past History - Past Medical History Allergies/Adverse Reactions: Allergies Allergy/AdvReac Type Severity Reaction Status Date / Time No Known Allergies Allergy Verified 07/26/18 15:24 Home Medications: Ambulatory Orders Abacavir/Dolutegravir/Lamivudi [Triumeq 600-50-300 mg Tablet] 1 each PO DAILY Quetiapine Fumarate [Seroquel -] 100 mg PO HS 09/24/15 Diphenhydramine [Benadryl Capsule -] 50 mg PO BID #60 capsule 09/08/17 Albuterol Sulfate Inhaler - [Ventolin HFA Inhaler -] 2 inh PO Q4H PRN #1 inhaler 09/11/17 Valacyclovir HCl [Valtrex -] 500 mg PO BID 07/25/18 Azithromycin [Zithromax -] 250 mg PO DAILY #6 tablet 07/26/18 Anemia: Yes Asthma: Yes Cancer: No Cardiac Disorders: No CVA: Yes (1995) COPD: No CHF: No Dementia: No Diabetes: No GI Disorders: No Disorders: No HTN: No Hypercholesterolemia: No Kidney Stones: No Liver Disease: No Seizures: No Thyroid Disease: No - Surgical History Abdominal Surgery: No Appendectomy: No Cardiac Surgery: No Cholecystectomy: No Lung Surgery: No Neurologic Surgery: No Orthopedic Surgery: No - Reproductive History PID: No - Suicide/Smoking/Psychosocial Hx Smoking History: Unknown if ever smoked Have you smoked in the past 12 months: Yes Number of Cigarettes Smoked Daily: 20 Information on smoking cessation initiated: Yes 'Breaking Loose' booklet given: 09/07/17 Hx Alcohol Use: (pt refused to answer) Drug/Substance Use Hx: (pt refused to answer) Substance Use Type: Alcohol, Cocaine Hx Substance Use Treatment: Yes Review of Systems - Review of Systems HEENTM: Yes: Mouth Pain Respiratory: Yes: Cough, Productive cough *Physical Exam - Vital Signs Last Vital Signs Temp Pulse Resp BP Pulse Ox 98.1 F 94 H 19 116/71 94 L 07/26/18 13:56 07/26/18 13:56 07/26/18 13:56 07/26/18 13:56 07/26/18 13:56 - Physical Exam Integumentary: positive: Other (herpetic rash at corners of the mouth) Moderate Sedation - Procedure Monitoring Vital Signs: Procedure Monitoring Vital Signs Temperature 98.1 F 07/26/18 13:56 Pulse Rate 94 H 07/26/18 13:56 Respiratory Rate 19 07/26/18 13:56 Blood Pressure 116/71 07/26/18 13:56 O2 Sat by Pulse Oximetry (%) 94 L 07/26/18 13:56 ED Treatment Course - LABORATORY CBC & Chemistry Diagram: 07/26/18 16:58 07/26/18 16:58 Medical Decision Making - Medical Decision Making 07/26/18 15:23 48 yr old immunocompromised woman with URI symptoms, labs from earlier this morning from [facility]: Laboratory Tests 07/26/18 07/26/18 06:00 06:00 WBC 10.5 H Hgb 11.4 Hct 34.7 Plt Count 212 Sodium 139 Potassium 3.4 L BUN 7 Creatinine 0.5 L Calcium 8.3 L Total Bilirubin 0.3 AST 16 ALT 13 Alkaline Phosphatase 82 Total Protein 7.5 Albumin 2.8 L Pt was uncooperative and violent towards staff at [facility]. She sounds congested during interview. will need to check for influenza, and do chest xray to look for infiltrate. she was able to eat bread without difficulty 07/26/18 16:28 ordered CBC, CMP, rapid influenza ordered, valtrex 500mg po pt endorsed that she has SI. She will be placed on 1:1 observation awaiting psychiatry evaluation. 07/26/18 16:44 Dr. Madden aware of consult and will come this evening to evaluate the patient 07/26/18 18:08 influenza negative, chest xray without any infiltrate hypokalemia, replete orally. has been cleared by psychiatry for dc start zithromax 500mg for URI symptoms 07/26/18 18:14 reviewed results of testing with patient. as she has not been participating in detox therapy, she will not be readmitted for detox as [facility]. pt requests for her belongings to be brought to [id number]. confirmed with the patient that preferred pharmacy is [facility], Z-luiz will be sent to this pharmacy to complete the course. offered PCP referral at [facility], pt declined saying she lives in the [place] and will f/u with someone closer to her home. discussed with nursing to arrange for belongings to be brought over from [facility]. *DC/Admit/Observation/Transfer Diagnosis at time of Disposition: URI (upper respiratory infection) - Discharge Dispostion Disposition: HOME Condition at time of disposition: Stable Decision to Admit order: No - Prescriptions Prescriptions: Azithromycin [Zithromax -] 250 mg PO DAILY #6 tablet - Referrals Referrals: [facility] [place] [Provider Group] - Patient Instructions Printed Discharge Instructions: DI for Common Cold Additional Instructions: You were evaluated in the ED for your cough. You did not have the flu and your chest xray did not show any pneumonia. You are being treated with an antibiotic for 6 days, zithromax 250mg. take 1 tablet daily, the prescription was sent to your pharmacy. Please follow-up with your primary care doctor within one week for post- hospital evaluation and resolution of your symptoms. If you do not have one, a referral to the hospital clinic at [facility] has been provided for you. Please call to make an appointment. If your symptoms worsen or you develop any new symptoms please return to the hospital. - Post Discharge Activity Forms/Work/School Notes: HIV Follow UP [facility]
[2018-07-26] MEDS ORDERED: ACETAMINOPHEN 1000 MG/100 ML VIAL (NON FORMULARY) IVPB ONE (15:57)
[2018-07-26] MEDS ORDERED: SODIUM CHLORIDE 1,000 ML IV STA (15:59)
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
[2018-07-26] MEDS ORDERED: valACYclovir HCL 500 MG TABLET (FP) PO ONE (16:19)
[2018-07-26] MEDS ORDERED: valACYclovir HCL 500 MG TABLET (FP) ONE (16:20)
[2018-07-26] MEDS ORDERED: ACETAMINOPHEN INJECTION 100 ML IVPB ONE (16:20)
[2018-07-26 17:10] LABS: BASO % 0.5 % (0-2.0); EOS % 2.4 % (0-4.5); HEMATOCRIT 33.3 % (32.4-45.2); HEMOGLOBIN 11.2 GM/dL (10.7-15.3); LYMPH % 28.4 % (8-40); MCH 29.8 pg (25.7-33.7); MCHC 33.7 g/dl (32.0-36.0); MEAN CELL VOLUME 88.5 fl (80-96); MEAN PLT VOLUME 8.5 fl (7.5-11.1); MONO % 10.1 % (3.8-10.2); NEUT % 58.6 % (42.8-82.8); PLATELET COUNT 216 K/MM3 (134-434); RBC 3.76 M/mm3 (3.60-5.2)
--- NOTE | 2018-07-26 17:14 | CON.PSY ---
Psychiatry Consult Chief Complaint: 48 yr old female with an extensive Substance abuse and ? Psych Illness. patient went to [facility] for cocaine detoxm sent hjere for upper respiratory condition. She apparntly told staff that she was suicidal ,,, Has no plans at this time. Patient denies that she is sucidal, weanmts help for Upper TRespiratory distress. Patient is well known in er and comes in for trepeated detoxes, she never follows with any rehab treatment. Symptoms: reports: Inability to Control Temper - Previous Psychiatric Treatment Outpatient: None Inpatient: None - Previous Substance Abuse Treatment Inpatient: 2 or more prior admissions - Reason for Previous Treatment Reason for Previous Treatment: Conduct Disorder, Cocaine - Allergies Allergies: Allergies Allergy/AdvReac Type Severity Reaction Status Date / Time No Known Allergies Allergy Verified 07/26/18 15:24 - Current Living Status Usual Living Arrangement: Alone - Current Mental Status Evaluation Appearance: Disheveled Attitude: Uncooperative - Affect Affect: Constrictive Appropriateness: Appropriate to Content - Mood Mood: Angry - Speech/Language Expressive: Coherent - Psychomotor Activity Psychomotor Activity: Normal - Thought Process Thought Process: Intact - Thought Content Hallucinations: Absent Delusions: Absent - Self Perception Self Perception: No Impairment - Cognition Attention: Alert Orientation: Time Memory, Immediate Recall: Intact Memory, Short Term: 2/3 Memory, Remote with Promptin/3 - Concentration Serial Sevens Intact: No Simple Calculations Intact: Yes - Abstraction Proverb Interpretation: Intact Judgement: Minimally Impaired - Insight Insight: Intact - Impulse Control Impulse Control: Minimally Impaired - Suicidal Ideation Suicidal Ideation: No Assessment/Plan 1) Patient is not suicidal at this time, 2) Discharge when Medically clear.
[2018-07-26 17:34] LABS: ALBUMIN 2.3 g/dl (3.4-5.0); ALK PHOS 67 U/L (45-117); ANION GAP 6 MMOL/L (8-16); BILIRUBIN,TOTAL 0.2 mg/dL (0.2-1); BLOOD UREA NITROGEN 11 mg/dL (7-18); CALCIUM 7.9 mg/dL (8.5-10.1); CHLORIDE 102 mmol/L (98-107); CO2 29 mmol/L (21-32); CREATININE 0.6 mg/dL (0.55-1.3); GLUCOSE,RANDOM 115 mg/dL (74-106); POTASSIUM 3.2 mmol/L (3.5-5.1); SGOT/AST 12 U/L (15-37); SGPT/ALT 12 U/L (13-61); SODIUM 138 mmol/L (136-145); TOT PROT 6.7 g/dl (6.4-8.2)
[2018-07-26] MEDS ORDERED: POTASSIUM CHLORIDE TABS 20 MEQ TABLET.ER (FP) PO ONE ×2 (18:04→18:41)
[2018-07-26] MEDS ORDERED: AZITHROMYCIN 500 MG TABLET PO ONE (18:08)
[2018-07-26] MEDS ORDERED: AZITHROMYCIN 250 MG TABLET ONE (18:41)
== END 2018-07-26 19:01 | disposition home or self-care (01) ==
LOC: JER 13:14
PROC: 3E033NZ Introduction of Analgesics, Hypnotics, Sedatives into Peripheral Vein, Percutaneous Approach (ICD-10-PCS; principal; 2018-07-26)
PROC: 3E0337Z Introduction of Electrolytic and Water Balance Substance into Peripheral Vein, Percutaneous Approach (ICD-10-PCS; 2018-07-26)
DX: J06.9 Acute upper respiratory infection, unspecified (principal)
CPT/HCPCS: 36415; 71045-TC-FY; 80053; 84703; 85025; 87804; 99282-25; J0131; J7030